=== PATIENT | female | born 1970 | race Caucasian/White ===

== ENCOUNTER 2018-11-23 05:49 | Emergency (ER) | payer OTHER, SELFPAY ==
--- NOTE | 2018-11-23 05:51 | W.ED.GENAD ---
Discharge Plan Disposition Patient Disposition: HOME Condition: Stable Discharge Details Chief Complaint: Orthopedic Clinical Impression: Contusion of left hand Primary Care Provider: [place] [place] Provider: Renato Haile Home Meds and New Rx's Prescriptions: No Action simvastatin 20 MG tablet 1 tab PO DAILY RF: 0 Discharge Instructions Additional Instructions: Your xray did not show any broken bones you can take 1000mg tylenol and 600mg ibuprofen every 6 hours for pain as needed If you have pain in a week see your primary care provider Medical Decision Making 48 yo female who has a hx of hld comes in with pain of the distal left 5th metacarpal for 3 days Doesn't remember the exact mechanism or how it started, but states she thinks it may have happened when she had vertigo and hit her hand on an ojbect. Denies any pain elsewhere. No visible or palpable deformities of the hand, no pain in wrist even on rom and palpation, no snuffbox tenderness, full rom in extension and flexion at all finger joints in all fingers. Has pain with palpation to the distal left 5th metacarpal, will xray to eval for fx. HAs no erythema, warmth or fevers so doubt entties such as septic joint or osteo xray negative on my read, will place in splint for comfort and advised f/u with pcp if still having pain in a week Differential Diagnosis contusion, sprain, strain Imaging Data Radiologic Study: Attestation: I personally reviewed and interpreted this imaging study as follows: Imaging: X-Ray My impression: no acute findings HPI General Mode of arrival: ambulatory. Date/Time Provider Initiated Documentation: 11/23/18 05:51. Limitations to Documentation: no limitations. Information obtained by: patient. History of Present Illness 48 year old F presents to the emergency department with the chief complaint of left hand pain, described as moderate, Quality is described as aching, and is localized to the left and upper extremity. Patient reports no radiation. Patient started experiencing this day(s) (3) and it has been constant. Rest improves symptom(s), Movement worsens symptoms . Patient notes no other symptoms.. Patient did receive the following treatments prior to arrival, NSAID Related Data Home Medications Medication Instructions Recorded Confirmed simvastatin 1 tab PO DAILY 03/02/15 11/23/18 Allergies Allergy/AdvReac Type Severity Reaction Status Date / Time No Known Allergies Allergy Unverified 11/23/18 05:58 Review of Systems Review of Systems All systems reviewed & are unremarkable except as noted in HPI and below Constitutional Denies chills, Denies fever(s) and Denies weakness Cardiovascular Denies chest pain and Denies dyspnea Respiratory Denies cough and Denies dyspnea Gastrointestinal Denies nausea and Denies vomiting Musculoskeletal Denies joint swelling Integumentary/Breasts Denies rash Neurologic Denies weakness PFSH Social History Smoking/Tobacco Use Status: Former Tobacco Use Drug use: Never Do you feel safe at home: Yes Do you feel safe in your relationship?: Yes Exam Const General: no acute distress Orientation: alert HENMT Head: normal to inspection Ears: external ears normal General nose exam: external nose normal Mouth: moist mucous membranes Eyes General: appearance normal, both eyes and all related structures Neck Neck: normal visual inspection Resp Effort & Inspection: normal respiratory effort and able to speak in complete sentences Cardio Rate: regular rate Skin General skin exam: no rashes or lesions noted Neuro General: alert and oriented x3 Extrem General: normal to inspection Psych Mental Status: mental status grossly normal
[2018-11-23 05:53] VITALS: PULSE 106; RESP 18; O2SAT 97
[2018-11-23 05:56] VITALS: BP 149/98
--- NOTE | 2018-11-23 05:58 | ED.GENADUL_ITS ---
Discharge Plan Disposition Patient Disposition: HOME Condition: Stable Discharge Details Chief Complaint: Orthopedic Clinical Impression: Contusion of left hand Primary Care Provider: [place] [place] Provider: Renato Haile Home Meds and New Rx's Prescriptions: No Action simvastatin 20 MG tablet 1 tab PO DAILY RF: 0 Discharge Instructions Additional Instructions: Your xray did not show any broken bones you can take 1000mg tylenol and 600mg ibuprofen every 6 hours for pain as needed If you have pain in a week see your primary care provider Medical Decision Making 48 yo female who has a hx of hld comes in with pain of the distal left 5th metacarpal for 3 days Doesn't remember the exact mechanism or how it started, but states she thinks it may have happened when she had vertigo and hit her hand on an ojbect. Denies any pain elsewhere. No visible or palpable deformities of the hand, no pain in wrist even on rom and palpation, no snuffbox tenderness, full rom in extension and flexion at all finger joints in all fingers. Has pain with palpation to the distal left 5th metacarpal, will xray to eval for fx. HAs no erythema, warmth or fevers so doubt entties such as septic joint or osteo xray negative on my read, will place in splint for comfort and advised f/u with pcp if still having pain in a week Differential Diagnosis contusion, sprain, strain Imaging Data Radiologic Study: Attestation: I personally reviewed and interpreted this imaging study as follows: Imaging: X-Ray My impression: no acute findings HPI General Mode of arrival: ambulatory . Date/Time Provider Initiated Documentation: 11/23/18 05:51 . Limitations to Documentation: no limitations . Information obtained by: patient . History of Present Illness 48 year old F presents to the emergency department with the chief complaint of left hand pain, described as moderate, Quality is described as aching, and is localized to the left and upper extremity. Patient reports no radiation. Patient started experiencing this day(s) (3) and it has been constant. Rest improves symptom(s), Movement worsens symptoms . Patient notes no other symptoms.. Patient did receive the following treatments prior to arrival, NSAID Related Data Home Medications Medication Instructions Recorded Confirmed simvastatin 1 tab PO DAILY 03/02/15 11/23/18 Allergies Allergy/AdvReac Type Severity Reaction Status Date / Time No Known Allergies Allergy Unverified 11/23/18 05:58 Review of Systems Review of Systems All systems reviewed & are unremarkable except as noted in HPI and below Constitutional Denies chills, Denies fever(s) and Denies weakness Cardiovascular Denies chest pain and Denies dyspnea Respiratory Denies cough and Denies dyspnea Gastrointestinal Denies nausea and Denies vomiting Musculoskeletal Denies joint swelling Integumentary/Breasts Denies rash Neurologic Denies weakness PFSH Social History Smoking/Tobacco Use Status: Former Tobacco Use Drug use: Never Do you feel safe at home: Yes Do you feel safe in your relationship?: Yes Exam Const General: no acute distress Orientation: alert HENMT Head: normal to inspection Ears: external ears normal General nose exam: external nose normal Mouth: moist mucous membranes Eyes General: appearance normal, both eyes and all related structures Neck Neck: normal visual inspection Resp Effort & Inspection: normal respiratory effort and able to speak in complete sentences Cardio Rate: regular rate Skin General skin exam: no rashes or lesions noted Neuro General: alert and oriented x3 Extrem General: normal to inspection Psych Mental Status: mental status grossly normal
--- NOTE | 2018-11-23 06:04 | DI.RAD_ITS ---
SYMPTOM/DIAGNOSIS: PAIN 5TH METACARPAL, HIT HAND LEFT HAND: Three views were obtained. No fracture is seen.
--- NOTE | 2018-11-23 06:22 | DI.VRAD_ITS ---
EXAM: XR Left Hand Complete, 3 or more Views EXAM DATE/TIME: 11/23/2018 5:55 AM CLINICAL HISTORY: 48 years old, female; Pain; Hand; Left; Patient HX: Pain along lateral aspect of 5th metacarpal S/P minor injury a few days ago TECHNIQUE: Imaging protocol: XR Left hand 3 or more views. COMPARISON: No relevant prior studies available. FINDINGS: Bones/joints: Typical for age. No evidence of acute fracture. Soft tissues: Unremarkable. IMPRESSION: No acute findings. Dictated and Authenticated by: Manny Vega MD. Ordering:ALONSO Gross MD
== END 2018-11-23 06:15 | disposition home or self-care (01) ==
LOC: ER 06:12
PROVIDERS: Emergency Provider Emergency Medicine; PCP Student in an Organized Health Care Education/Training Program
DX: S60.222A Contusion of left hand, initial encounter (principal); X58.XXXA Exposure to other specified factors, initial encounter
CPT/HCPCS: 99283; 73130; 99282; L3807